=== PATIENT | male | born 1995 | race Hispanic/Latino ===

== ENCOUNTER → 2024-05-03 | Outpatient (CLI) | payer OTHER ==
--- NOTE | 2024-05-03 15:42 | HMCIMG ---
Exam Type: CHEST 1VW Clinical Information: Shortness of breath Comparison: None Findings: The lungs are clear of infiltrates. The heart is normal in size. The bony and soft tissue structures of the chest are unremarkable. Impression: Clear lungs.
== END | disposition home or self-care (01) ==
LOC: RAH 14:53
PROVIDERS: ATTEND Family Medicine
DX: C91.01 Acute lymphoblastic leukemia, in remission (principal); E78.5 Hyperlipidemia, unspecified; N62 Hypertrophy of breast; R06.02 Shortness of breath
CPT/HCPCS: 36415; 71045; 82670; 84402; 84403

== ENCOUNTER → 2024-08-31 | Outpatient (CLI) | payer OTHER | END | disposition home or self-care (01) | LOC: LAB 07:21 | PROVIDERS: ATTEND Internal Medicine | DX: E29.0 Testicular hyperfunction (principal) | CPT/HCPCS: 36415; 82157; 82627; 83001; 83002; 84703 ==

== ENCOUNTER 2024-09-26 13:54 | Emergency (ER) | payer OTHER ==
[~2024-09-26] VITALS: Ht 188 cm; Wt 104.3 kg
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
--- NOTE | 2024-09-26 15:21 | HMCIMG ---
EXAM: CT Lumbar Spine Without IV contrast. CLINICAL HISTORY: pain TECHNIQUE: Axial computed tomography images of the lumbar spine without intravenous contrast. Sagittal and coronal reformatted images were generated. COMPARISON: None provided. FINDINGS: ALIGNMENT: Bony alignment is anatomic. DISCS/DEGENERATIVE CHANGES: There are degenerative changes with disc space narrowing at L4/L5 and L5/S1. End plate sclerosis seen at lower end plate of L5 and upper end plate of S1 vertebral bodies. Anterior and posterior bridging osteophytes seen at L5 vertebral body level. BONES: No acute fracture or aggressive appearing osseous lesion. SOFT TISSUES: The soft tissues are unremarkable. IMPRESSION: 1. No acute osseous injury. 2. Degenerative changes at L4/L5 and L5/S1. /[place]
--- NOTE | 2024-09-26 15:37 | HMCIMG ---
EXAM: CT Thoracic Spine Without IV contrast. CLINICAL HISTORY: pain TECHNIQUE: Axial computed tomography images of the thoracic spine without intravenous contrast. Sagittal and coronal reformatted images were generated. CONTRAST: None. COMPARISON: None provided. FINDINGS: BONES: No acute fracture or aggressive appearing osseous lesion. ALIGNMENT: Bony alignment is anatomic. DEGENERATIVE CHANGES: No significant central canal or neural foraminal stenosis. SOFT TISSUES: The soft tissues are unremarkable. IMPRESSION: 1. No acute findings. /[place]
[2024-09-26] MEDS: ORPHENADRINE 60MG/2ML IM ONE (15:45)
[2024-09-26] MEDS: TRIAMCINOLONE ACETONIDE 40 MG/ML 1ML VIAL IM ONE (15:45)
[2024-09-26] MEDS ORDERED: IBUP-1492 PO (15:55)
[2024-09-26] MEDS ORDERED: CYCL-309 PO (15:55)
[2024-09-26 16:23] VITALS: BP 104/53; PULSE 71; RESP 16; TEMP 97.9; O2SAT 100
== END 2024-09-26 16:25 | disposition home or self-care (01) ==
LOC: EDH 13:54
DX: S29.012A Strain of muscle and tendon of back wall of thorax, initial encounter (principal); S33.5XXA Sprain of ligaments of lumbar spine, initial encounter; V89.2XXA Person injured in unspecified motor-vehicle accident, traffic, initial encounter; Y93.89 Activity, other specified; Y92.488 Other paved roadways as the place of occurrence of the external cause; Y99.8 Other external cause status
CPT/HCPCS: 99285; 72131; 72128; 96372 ×3; J1885; J3301; J2360

== ENCOUNTER → 2024-12-29 | Outpatient (CLI) | payer OTHER ==
[~2024-12-29] MED LIST: CYCL-309 PO; IBUP-1492 PO
== END | disposition home or self-care (01) ==
LOC: LAB 08:34
PROVIDERS: ATTEND Internal Medicine
DX: E29.0 Testicular hyperfunction (principal)
CPT/HCPCS: 36415; 82670; 83002; 84270; 84403